=== PATIENT | female | born 1990 | race Caucasian/White ===

== ENCOUNTER 2018-01-20 05:06 | Day surgery (SDC) | payer BC ==
[2018-01-20 05:29] LABS: Urine Blood NEGATIVE (NEG); Urine Glucose NEGATIVE (NEG); Urine Protein TRACE (NEG); Urine Specific Gravity 1.015 (1.005-1.030); Urine pH 8.5 (5.0-7.0)
[2018-01-20] MEDS ORDERED: FENTANYL CITR 100 MCG/2 ML ONE ×2 (05:32→09:05)
[2018-01-20] MEDS ORDERED: NA CHLORIDE 0.9% 1,000 ML ONE (05:32)
[2018-01-20] MEDS ORDERED: ONDANSETRON 4 MG/2 ML VIAL ONE ×2 (05:32→08:41)
[2018-01-20] MEDS ORDERED: KETOROLAC 30 MG/ML INJ ONE ×2 (05:43→09:06)
[2018-01-20 05:54] LABS: Urine Bacteria 20-50 /HPF (<20); Urine Culture Reflex Order REFLEXED; Urine RBC NONE SEEN /HPF (NONE SEEN)
[2018-01-20 06:01] LABS: Absolute Lymphocytes (CBC) 2.1 K/uL (0.7-4.9); Absolute Monocytes 0.9 K/uL (0.1-1.3); Absolute Neutrophil 13.1 K/uL (1.8-8.0); Basophils % 0.4 % (0-1.3); Eosinophils % 0.3 % (0-4.4); Hematocrit 41.9 % (36.0-45.0); Lymphocytes % 13.1 % (15.3-44.8); MCV 79.6 fL (80-100); MPV 9.8 fL (7.6-11.3); Monocytes % 5.4 % (3.3-12.3); RBC Red Blood Cell Count 5.26 M/uL (3.86-4.86)
[2018-01-20 06:05] LABS: Albumin 4.5 g/dL (3.4-5.0); Bilirubin Direct 0.1 mg/dL (0-0.2); Bilirubin Total 0.6 mg/dL (0.2-1.0); Potassium 3.6 mmol/L (3.5-5.1); Protein, Total 8.2 g/dL (6.4-8.2)
--- NOTE | 2018-01-20 07:27 | EDPHYS ---
Physician Documentation [facility] Name: Beatris Abbott Age: 27 yrs Sex: Female : 1990 Arrival Date: 01/20/2018 Time: 05:07 Bed 6 Private MD: ED Physician Tomer Florez HPI: 01/20 06:02 This 27 yrs old Female presents to ER via Ambulatory with complaints of wa Abdominal Pain. 06:02 The patient presents with abdominal pain right lower quadrant, R pelvis. Onset: The wa symptoms/episode began/occurred 30 hour(s) ago. The symptoms do not radiate. Associated signs and symptoms: Pertinent positives: nausea, vomiting, Pertinent negatives: diarrhea, dysuria, fever. The symptoms are described as achy, sharp. Modifying factors: The symptoms are alleviated by nothing, the symptoms are aggravated by nothing. Severity of pain: At its worst the pain was severe in the emergency department the pain is actually worse markedly. The patient has not experienced similar symptoms in the past. The patient has not recently seen a physician. recently finished menses. 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 - Social history:: Smoking status: Patient/guardian denies using tobacco. - Ebola Screening: : No symptoms or risks identified at this time. - Family history:: not pertinent. - Hospitalizations: : No recent hospitalization is reported. ROS: 06:04 Constitutional: Negative for fever, chills, and weight loss, Eyes: Negative for injury, wa pain, redness, and discharge, ENT: Negative for injury, pain, and discharge, Neck: Negative for injury, pain, and swelling, Cardiovascular: Negative for chest pain, palpitations, and edema, Respiratory: Negative for shortness of breath, cough, wheezing, and pleuritic chest pain, Back: Negative for injury and pain, MS/Extremity: Negative for injury and deformity, Skin: Negative for injury, rash, and discoloration, Neuro: Negative for headache, weakness, numbness, tingling, and seizure, Psych: Negative for depression, anxiety, suicide ideation, homicidal ideation, and hallucinations. 06:04 Abdomen/GI: Positive for abdominal pain, vomiting, of the right lower quadrant, Negative for diarrhea. 06:04 : Positive for pelvic pain, of the Right side, Negative for urinary frequency, hematuria, burning with urination, difficulty urinating, vaginal bleeding, vaginal discharge. Exam: 06:05 Constitutional: This is a well developed, well nourished patient who is awake, alert, wa and in no acute distress. Head/Face: Normocephalic, atraumatic. Eyes: Pupils equal round and reactive to light, extra-ocular motions intact. Lids and lashes normal. Conjunctiva and sclera are non-icteric and not injected. Cornea within normal limits. Periorbital areas with no swelling, redness, or edema. ENT: Nares patent. No nasal discharge, no septal abnormalities noted. Tympanic membranes are normal and external auditory canals are clear. Oropharynx with no redness, swelling, or masses, exudates, or evidence of obstruction, uvula midline. Mucous membranes moist. 06:05 Neck: Trachea midline, no thyromegaly or masses palpated, and no cervical lymphadenopathy. Supple, full range of motion without nuchal rigidity, or vertebral point tenderness. No Meningismus. Chest/axilla: Normal chest wall appearance and motion. Nontender with no deformity. No lesions are appreciated. Cardiovascular: Regular rate and rhythm with a normal S1 and S2. No gallops, murmurs, or rubs. Normal PMI, no JVD. No pulse deficits. Respiratory: Lungs have equal breath sounds bilaterally, clear to auscultation and percussion. No rales, rhonchi or wheezes noted. No increased work of breathing, no retractions or nasal flaring. Back: No spinal tenderness. No costovertebral tenderness. Full range of motion. Skin: Warm, dry with normal turgor. Normal color with no rashes, no lesions, and no evidence of cellulitis. MS/ Extremity: Pulses equal, no cyanosis. Neurovascular intact. Full, normal range of motion. Neuro: Awake and alert, GCS 15, oriented to person, place, time, and situation. Cranial nerves II-XII grossly intact. Motor strength 5/5 in all extremities. Sensory grossly intact. Cerebellar exam normal. Normal gait. Psych: Awake, alert, with orientation to person, place and time. Behavior, mood, and affect are within normal limits. 06:05 Constitutional: The patient appears alert, in obvious distress, moderately distressed, due to pain. 06:05 Abdomen/GI: Inspection: abdomen appears normal, Bowel sounds: normal, in all quadrants, Palpation: soft, moderate abdominal tenderness, in the right lower quadrant. Vital Signs: 05:18 BP 122 / 98; Pulse 81; Resp 20; Temp 97.7(O); Pulse Ox 100% ; Weight 79.38 kg; Height 5 tl2 ft. 6 in. (167.64 cm); Pain 10/10; 05:54 BP 112 / 71; Pulse 57; Resp 18; Pulse Ox 94% on R/A; Pain 1/10; tl2 06:45 BP 112 / 61; Pulse 55; Resp 14; Pulse Ox 98% ; bp 07:35 BP 94 / 52; Pulse 52; Resp 17; Pulse Ox 100% on R/A; tw2 05:18 Body Mass Index 28.25 (79.38 kg, 167.64 cm) tl2 MDM: 05:15 Patient medically screened. al 06:06 Differential diagnosis: severe abd/pelvic pain R side. r/o ovarian ruptured cyst, wa torsion, TOA, ureteral stone, appy. treat pain. obtain studies to reassess. Data reviewed: vital signs, nurses notes. 06:38 Test interpretation: by ED physician or midlevel provider: labs noted for leukocytosis. wa UA note for ketonuria. 07:22 Test interpretation: by ED physician or midlevel provider: CT abd/pelvis: Acute wa appendicitis. . Response to treatment: the patient's symptoms have markedly improved after treatment. Physician consultation: Steven Bacon MD was contacted at 07:25. Admission orders: after a detailed discussion of the patient's condition and case, the admit orders are written by me. 01/20 05:26 Order name: Creatinine for Radiology; Complete Time: 06:36 01/20 05:26 Order name: Basic Metabolic Panel; Complete Time: 06:35 01/20 05:26 Order name: CBC with Diff; Complete Time: 06:35 01/20 05:26 Order name: Hepatic Function; Complete Time: 06:36 01/20 05:26 Order name: Lipase; Complete Time: 06:36 21 05:26 Order name: Urine Microscopic Only; Complete Time: 06:36 al 01/20 05:27 Order name: CT Abd/Pelvis - W/Contrast 01/20 05:27 Order name: Urine Dipstick--Ancillary (enter results); Complete Time: 06:36 [facility] 01/20 05:27 Order name: Urine --Ancillary (enter results); Complete Time: 06:34 [facility] 01/20 05:54 Order name: Urine Culture EDMS 01/20 07:31 Order name: Basic Metabolic Panel EDMS 01/20 07:31 Order name: Basic Metabolic Panel EDMS 01/20 07:31 Order name: CBC with Automated Diff EDMS 01/20 07:31 Order name: CBC with Automated Diff EDMS 01/20 05:26 Order name: Urine Test (obtain specimen); Complete Time: 05:28 01/20 05:26 Order name: IV Saline Lock; Complete Time: 05:28 01/20 05:26 Order name: Labs collected and sent; Complete Time: 05:01/20 05:26 Order name: Urine Dipstick-Ancillary (obtain specimen); Complete Time: 05:01/20 06:19 Order name: Transvaginal Study Probe EDMS Administered Medications: 05:36 Drug: fentaNYL (PF) 100 mcg Route: IVP; Site: right antecubital; tl2 05:41 Follow up: Response: Pain is decreased bp 05:37 Drug: Zofran 4 mg Route: IVP; Site: right antecubital; tl2 05:41 Follow up: Response: Nausea is decreased bp 05:37 Drug: NS 0.9% 1000 ml Route: IV; Rate: 1 bolus; Site: right antecubital; tl2 07:10 Follow up: Response: No adverse reaction; IV Status: Completed infusion; IV Intake: tw2 1000ml 05:41 Drug: TORadol 30 mg Route: IVP; Site: right antecubital; bp 05:42 Follow up: Response: Pain is decreased bp 07:33 Drug: Zosyn 3.375 grams Route: IVPB; Infused Over: 60 mins; Site: right antecubital; tw2 08:33 Follow up: Response: No adverse reaction; IV Status: Completed infusion tw2 Disposition: 01/20/18 07:26 Hospitalization ordered by Steven Bacon for Inpatient Admission. Preliminary diagnosis is Acute appendicitis. - Bed requested for Telemetry/MedSurg (observation). - Status is Inpatient Admission. tw2 - Condition is Stable. - Problem is new. - Symptoms have improved. UTI on Admission? No Signatures: Dispatcher [employer] EDOR Juju Claudio RN RN tw2 Anuja Chicas RN RN tl2 Tomer Florez MD MD wa Peltier, Brian RN RN bp Corrections: (The following items were deleted from the chart) 06:19 05:28 Pelvis Complete+US.RAD.BRZ ordered. EDOR EDOR 09:06 07:26 Hospitalization Ordered by Steven Bacon MD for Inpatient Admission. Preliminary tw2 diagnosis is Acute appendicitis. Bed requested for Telemetry/MedSurg (observation). Status is Inpatient Admission. Condition is Stable. Problem is new. Symptoms have improved. UTI on Admission? No. haresh
--- NOTE | 2018-01-20 07:27 | ER ---
Nurse's Notes [facility] Name: Beatris Abbott Age: 27 yrs Sex: Female : 1990 Arrival Date: 01/20/2018 Time: 05:07 Bed 6 Private MD: Diagnosis: Acute appendicitis Presentation: 01/20 05:16 Presenting complaint: Patient states: RLQ abdominal pain since 1:00 PM yesterday. tl2 Constant pain, reports nausea and vomiting x 3. Denies diarrhea. Transition of care: patient was not received from another setting of care. Onset of symptoms was January 19, 2018 at 13:00. Risk Assessment: Do you want to hurt yourself or someone else? Patient reports no desire to harm self or others. Initial Sepsis Screen: Does the patient meet any 2 criteria? No. Patient's initial sepsis screen is negative. Does the patient have a suspected source of infection? No. Patient's initial sepsis screen is negative. Care prior to arrival: None. 05:16 Method Of Arrival: Ambulatory tl2 05:16 Acuity: [place] 3 tl2 Triage Assessment: 05:18 General: Appears in no apparent distress. uncomfortable, Behavior is calm, cooperative, tl2 appropriate for age. Pain: Complains of pain in right lower quadrant Pain does not radiate. Pain currently is 10 out of 10 on a pain scale. Quality of pain is described as sharp, Pain began 1 day ago. Noted to be grimacing, guarding. Neuro: Level of Consciousness is awake, alert, obeys commands, Oriented to person, place, time, situation. Cardiovascular: Denies chest pain. Respiratory: Airway is patent Respiratory effort is even, unlabored, Respiratory pattern is regular, symmetrical. GI: Abdomen is non-distended, Abd is soft Abdomen is tender to palpation in right lower quadrant Reports lower abdominal pain, nausea, vomiting, Patient currently denies diarrhea. : No signs and/or symptoms were reported regarding the genitourinary system. Derm: Skin is pink, warm \T\ dry. 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 - Social history:: Smoking status: Patient/guardian denies using tobacco. - Ebola Screening: : No symptoms or risks identified at this time. - Family history:: not pertinent. - Hospitalizations: : No recent hospitalization is reported. Screenin:20 Abuse screen: Denies threats or abuse. Nutritional screening: No deficits noted. tl2 Tuberculosis screening: No symptoms or risk factors identified. Fall Risk None identified. Assessment: 05:20 General: Appears distressed, uncomfortable, slender, Behavior is cooperative, bp appropriate for age, agitated. Pain: Complains of pain in right lower quadrant Pain currently is 10 out of 10 on a pain scale. Neuro: Level of Consciousness is awake, alert, obeys commands, Oriented to person, place, time, situation, Appropriate for age. Cardiovascular: No deficits noted. Respiratory: Airway is patent Respiratory effort is even, unlabored, Respiratory pattern is regular, symmetrical. GI: Bowel sounds present X 4 quads. : No signs and/or symptoms were reported regarding the genitourinary system. EENT: No deficits noted. Derm: No deficits noted. Musculoskeletal: No deficits noted. 05:54 Reassessment: Patient appears in no apparent distress at this time. Patient and/or tl2 family updated on plan of care and expected duration. Pain level reassessed. Patient is alert, oriented x 3, equal unlabored respirations, skin warm/dry/pink. Patient states feeling better. 05:55 General: US will arrive in approx 10 minutes. tl2 06:04 Reassessment: U/S AT B/S. bp 06:21 Reassessment: PT TO CT WITH MAIL READER. bp 06:50 Reassessment: ALL CURRENT ORDERS COMPLETED, PT RETURNED TO ROOM. RAD RESULTS PENDING. bp 07:35 Reassessment: Patient appears in no apparent distress at this time. Patient and/or tw2 family updated on plan of care and expected duration. Pain level reassessed. Patient is alert, oriented x 3, equal unlabored respirations, skin warm/dry/pink. Vital Signs: 05:18 BP 122 / 98; Pulse 81; Resp 20; Temp 97.7(O); Pulse Ox 100% ; Weight 79.38 kg; Height 5 tl2 ft. 6 in. (167.64 cm); Pain 10/10; 05:54 BP 112 / 71; Pulse 57; Resp 18; Pulse Ox 94% on R/A; Pain 1/10; tl2 06:45 BP 112 / 61; Pulse 55; Resp 14; Pulse Ox 98% ; bp 07:35 BP 94 / 52; Pulse 52; Resp 17; Pulse Ox 100% on R/A; tw2 05:18 Body Mass Index 28.25 (79.38 kg, 167.64 cm) tl2 ED Course: 05:07 Patient arrived in ED. ds1 05:15 Tomer Florez MD is Attending Physician. wa 05:17 Triage completed. tl2 05:18 Arm band placed on right wrist. tl2 05:20 Patient has correct armband on for positive identification. Placed in gown. Bed in low tl2 position. Call light in reach. Side rails up X 1. Adult w/ patient. 05:30 Mane Millan, RN is Primary Nurse. bp 05:30 Inserted saline lock: 20 gauge in right antecubital area, using aseptic technique. bp Blood collected. 05:46 Radiology exam delayed due to Dr. Florez has asked to have an US completed prior to kw1 having her CT done. 06:17 Ultrasound completed. Patient tolerated well. aa4 06:19 Transvaginal Study Probe In Process Unspecified. EDMS 06:[address] via wheelchair. kw1 06:34 CT completed. Patient tolerated procedure well. Patient moved back from CT. kw1 06:36 CT Abd/Pelvis - W/Contrast In Process Unspecified. EDMS 07:26 Steven Bacon MD is Hospitalizing Provider. wa 07:36 Primary Nurse role handed off by Mane Millan, JOCELYN tw2 07:36 Juju Claudio, JOCELYN is Primary Nurse. tw2 09:06 No provider procedures requiring assistance completed. Patient admitted, IV remains in tw2 place. Administered Medications: 05:36 Drug: fentaNYL (PF) 100 mcg Route: IVP; Site: right antecubital; tl2 05:41 Follow up: Response: Pain is decreased bp 05:37 Drug: Zofran 4 mg Route: IVP; Site: right antecubital; tl2 05:41 Follow up: Response: Nausea is decreased bp 05:37 Drug: NS 0.9% 1000 ml Route: IV; Rate: 1 bolus; Site: right antecubital; tl2 07:10 Follow up: Response: No adverse reaction; IV Status: Completed infusion; IV Intake: tw2 1000ml 05:41 Drug: TORadol 30 mg Route: IVP; Site: right antecubital; bp 05:42 Follow up: Response: Pain is decreased bp 07:33 Drug: Zosyn 3.375 grams Route: IVPB; Infused Over: 60 mins; Site: right antecubital; tw2 08:33 Follow up: Response: No adverse reaction; IV Status: Completed infusion tw2 Intake: 07:10 IV: 1000ml; Total: 1000ml. tw2 Outcome: 07:26 Decision to Hospitalize by Provider. va 09:06 Admitted to OR accompanied by nurse, with chart. tw2 09:06 Condition: stable 09:06 Instructed on the need for admit. 09:06 Patient left the ED. tw2 Signatures: Dispatcher [employer] EDME HoffmanLorie ge ds1 Sandra Ahn aa4 Juju Claudio RN RN tw2 Anuja Chicas RN RN tl2 Tomer Florez MD MD va Mane Millan RN RN bp Mary Dao kw1
[2018-01-20] MEDS ORDERED: MORPHINE 4 MG/ML SYR IV PRN (07:29)
[2018-01-20] MEDS ORDERED: ACETAMINOPHEN 500 MG TAB PO PRN (07:29)
[2018-01-20] MEDS ORDERED: ONDANSETRON 4 MG/2 ML VIAL IV PRN (07:29)
[2018-01-20] MEDS ORDERED: PIPER/TAZO/NS 3.375gm 3.375 GM/100 ML BAG ONE (07:30)
[2018-01-20] MEDS ORDERED: D5.45NS W/KCL 20MEQ 1,000 ML IV SCH (08:00)
[2018-01-20] MEDS ORDERED: MORPHINE 4 MG/ML SYR ONE ×2 (08:41→09:05)
[2018-01-20] MEDS ORDERED: LIDOCAINE 1% W/EPI 1:100,000 MDV 50 ML VIAL ONE (08:57)
--- NOTE | 2018-01-20 09:01 | RAD REPORT ---
EXAM DESCRIPTION: US - Transvaginal Study Probe - 01/20/2018 6:21 am CLINICAL HISTORY: Right pelvic pain COMPARISON: none FINDINGS: The uterus measures 7 x 4 x 5cm. A fibroid is not seen. Fluid within the endometrium is se en. The endometrial stripe measures 8 millimeters. The ovaries are normal in size and echotexture. Bilateral ovarian blood flow is noted. A small amount of free fluid is present IMPRESSION: Small amount of free fluid
--- NOTE | 2018-01-20 09:04 | RAD REPORT ---
EXAM DESCRIPTION: CT - Abdomen Pelvis W Contrast - 01/20/2018 8:54 am CLINICAL HISTORY: Abdominal pain right lower quadrant pain since 1 yesterday with vomiting COMPARISON: none. TECHNIQUE: Computed axial tomography of the abdomen pelvis was obtained. 100 cc Isovue-300 was admin istered intravenously. Oral contrast was not requested which limits evaluation of bowel. A preliminary report was generated by [employer] and reviewed prior to this dictation All CT scans are performed using dose optimization technique as appropriate and may include automated exposure control or mA/KV adjustment according to patient size. FINDINGS: The liver, spleen, pancreas, adrenal and kidneys appear unremarkable. The appendix is dilated. A small amount of extraluminal air is seen. Couple of appendicolith are note d. The appendix extends superiorly medially from the cecum .A small amount of free fluid is present i n the pelvis and right lower quadrant. IMPRESSION: Perforated appendicitis.
[2018-01-20] MEDS ORDERED: GLYCOPYRROLATE 0.2 MG/ML SYR ONE (09:05)
[2018-01-20] MEDS ORDERED: PROPOFOL 200 MG/20 ML VIAL IV ONE (09:05)
[2018-01-20] MEDS ORDERED: MIDAZOLAM HCL 2 MG/2 ML INJ ONE (09:05)
[2018-01-20] MEDS ORDERED: ONDANSETRON 4 MG (ODT) TAB ONE (09:05)
[2018-01-20] MEDS ORDERED: ROCURONIUM 50 MG/5 ML VIAL IV ONE (09:06)
[2018-01-20] MEDS ORDERED: LIDOCAINE 2% MPF 5 ML VIAL ONE (09:06)
[2018-01-20] MEDS ORDERED: ONDANSETRON HCL 40 MG/20 ML VIAL ONE (09:06)
[2018-01-20] MEDS ORDERED: NEOSTIGMINE 1 MG/ML -5 ML SYRINGE ONE (09:06)
[2018-01-20] MEDS ORDERED: Ringers Lactate 1,000 ML IV ONE ×2 (09:19→10:26)
[2018-01-20] MEDS: BUPIVACA 0.25%/EPI 0.0005%/PF 30 ML VIAL ONE ×2 (09:51→09:57)
--- NOTE | 2018-01-20 10:23 | P.OP ---
Information Assoc: Ko Lassiter Preoperative diagnosis: Acute Non-Perforated Appendicitis Postoperative diagnosis: Acute Non-Perforated Appendicitis Primary procedure: Laparoscopic Appendectomy Anesthesia: GETA + Local Estimated blood loss: <5cc Specimen: Vermiform Appendix Findings: Acute Non-Perforated Appendicitis Complications: None Transferred to: Recovery Room Condition: Good
[2018-01-20] MEDS ORDERED: HYDROCODONE/APAP 5/325 MG TAB ONE (11:07)
[2018-01-20] MEDS ORDERED: PROMETHAZINE 25 MG/ML VIAL ONE (11:33)
--- OUTSIDE RECORDS SUMMARY | 2018-01-20 12:16 | XMS REPORT | Summary of Care ---
:1990 Author Organization [facility] Address [address] [place], [place] [address]- Encounter [facility] Encntr_alias([facility]) [id number] Date(s): 03/21/17 - 03/21/17 [facility] [address] [place] [address]- Discharge Disposition: Home or Self Care Attending Physician: Kobi Mcdonald MD Admitting Physician: KOBI MCDONALD Referring Physician: Kobi Mcdonald MD Vital Signs No data available for this section Problem List No data available for this section Allergies, Adverse Reactions, Alerts No data available for this section Medications No data available for this section Results No data available for this section Immunizations No data available for this section Procedures No data available for this section Social History No data available for this section Assessment and Plan No data available for this section
--- OUTSIDE RECORDS SUMMARY | 2018-01-20 12:16 | XMS REPORT | Continuity of Care Document ---
:1990 Author Organization Interface Problems Problem Status Onset Classification Date Comments Source Date Reported ANATOMY Active [facility] U/S - GDM, [address] UNCONTROLLED Medications Medication Details Route Status Patient Ordering Order Source Instructions Provider Date Allergies, Adverse Reactions, Alerts Substance Category Reaction Severity Reaction Status Date Comments Source type Reported Immunizations Immunization Date Given Site Status Last Updated Comments Source Results Order Results Value Reference Date Interpretation Comments Source Name Range Vital Signs Vital Sign Value Date Comments Source Encounters Location Location Encounter Encounter Reason Attending ADM DC Status Source Details Type Number For Provider Date Date Visit [facility] [id number] SARAH 03/21 03/22 JOCELINE MCDONALD /2016 [place] Procedures Procedure Code Date Perfomer Comments Source
--- OUTSIDE RECORDS SUMMARY | 2018-01-20 12:16 | XMS REPORT | Clinical Summary ---
:1990 Author Organization [facility] Address [address] [place] [address] Phone Care Team Providers Name Role Phone Unavailable Primary Care Provider Unavailable Allergies No Known Allergies Current Medications Prescription Sig. Disp. Refills Start Date End Date Status scopolamine Place 1 patch 12 patch 1 10/11/2016 Discontinued (TRANSDERM-SCOP) (1.5 mg total) 7 1.5 mg (1 mg over onto the skin 3 days) patch every third day. progesterone Take 100 mg by Discontinued (PROMETRIUM) 100 mouth daily. 7 MG capsule PNV NO.95/FERROUS Take by mouth Discontinued FUM/FOLIC AC daily. 7 ( ORAL) metFORMIN Take 1 tablet 60 tablet 4 02/10/2017 Discontinued (GLUCOPHAGE XR) (500 mg total) by 7 500 MG 24 hr mouth 2 (two) tablet times daily for 30 days. metFORMIN Take 2 tablets 120 tablet 1 02/21/2017 Discontinued (GLUCOPHAGE XR) (1,000 mg total) 7 500 MG 24 hr by mouth 2 (two) tablet times daily for 30 days. metFORMIN Take 2 tablets 120 tablet 2 03/17/2017 Discontinued (GLUCOPHAGE XR) (1,000 mg total) 7 500 MG 24 hr by mouth 2 (two) tablet times daily for 30 days. acetaminophen-cod Take 1 tablet by 30 tablet 0 03/24/2017 eine (TYLENOL #3) mouth every 4 7 300-30 mg per (four) hours as tablet needed for up to 10 days. Max Daily Amount: 6 tablets docusate sodium Take 1 capsule 10 capsule 0 03/24/2017 (COLACE) 100 MG (100 mg total) by 7 capsule mouth 2 (two) times daily as needed for Constipation for up to 10 days. ibuprofen Take 1 tablet 40 tablet 0 03/24/2017 (ADVIL,MOTRIN) (800 mg total) by 7 800 MG tablet mouth every 6 (six) hours as needed for up to 10 days. Active Problems Problem Noted Date 03/21/2017 care in first trimester 09/13/2016 Amenorrhea 08/18/2016 Encounters Date Type Specialty Care Team Description 05/02/2017 Obstetrics and MORGAN Prasad (spontaneous Gynecology Kobi Giron, vaginal delivery) (Primary Dx) 04/05/2017 Obstetrics MORGAN Patel (spontaneous Gynecology Kobi Giron, vaginal delivery) (Primary Dx) 03/27/2017 Telephone Obstetrics santiago Prasad, Edema Gynecology Kobi Giron MD 03/22/2017 Anesthesia Event Obstetrics Emily Clay, DO 03/22/2017 Anesthesia Event Obstetrics Joel Anderson, LINDSEY 03/21/2017 - Hospital Encounter Obstetrics MORGAN Prasad (spontaneous 03/24/2017 Kobi Giron, vaginal delivery) (Primary Dx);GDM, class A2 ([facility]) 03/17/2017 Routine Obstetrics and Osmar, GA: 36w4d Gynecology Kobi Giron MD 03/15/2017 Orders Only Obstetrics and Osmar, Patricia Giron MD 03/14/2017 Telephone Obstetrics santiago Prasad, Diabetes Gynecology Kobi Giron MD 03/10/2017 Routine Obstetrics and Osmar, GA: 35w4d Patricia Giron MD 03/09/2017 Orders Only Obstetrics and Osmar, Gynecology Kobi Giron MD 02/21/2017 Routine Obstetrics and Osmar, GA: 33w1d Patricia Giron MD 02/16/2017 Routine Obstetrics and Osmar, GA: 32w3d Gynecology Kobi Giron MD 02/10/2017 Routine Obstetrics and Osmar, GA: 31w4d Gynecology Kobi Giron MD 01/31/2017 Telephone Obstetrics santiago Prasad, Incoming Gynecology Matias Beckwith MD 01/27/2017 Routine Obstetrics and Osmar, GA: 29w4d Gynecology Kobi Giron MD after 01/19/2017 Immunizations Name Dates Previously Given Next Due Influenza Three-TIV PF 5+ YR 08/18/2016 Tdap 01/27/2017 Family History Medical History Relation Name Comments Hypertension Maternal Aunt Hypertension Maternal Grandfather Cancer Maternal Grandmother Diabetes Maternal Grandmother Relation Name Status Comments Maternal Aunt Maternal Grandfather Maternal Grandmother Social History Tobacco Use Types Packs/Day Years Used Date Never Smoker Smokeless Tobacco: Never Used Alcohol Use Drinks/Week oz/Week Comments No Sex Assigned at Date Recorded Not on file Last Filed Vital Signs Vital Sign Reading Time Taken Blood Pressure 99/66 05/02/2017 10:33 AM CDT Pulse 90 05/02/2017 10:33 AM CDT Temperature 36.6 C (97.8 F) 05/02/2017 10:33 AM CDT Respiratory Rate 20 03/24/2017 7:34 AM CDT Oxygen Saturation 98% 05/02/2017 10:33 AM CDT Inhaled Oxygen Concentration - - Weight 82.2 kg (181 lb 3.2 oz) 05/02/2017 10:33 AM CDT Height 167.6 cm (5' 6") 05/02/2017 10:33 AM CDT Body Mass Index 29.25 05/02/2017 10:33 AM CDT Plan of Treatment Date Type Specialty Care Team Description 05/03/2018 Office Visit Obstetrics and Gynecology OsmarKobi MD [address] [address] [phone] Health Maintenance Due Date Last Done Comments INFLUENZA VACCINE 04/02/2018 08/18/2016 Results TRANSFUSION SERVICE REPORT - SCAN (03/23/2017 5:30 PM)Only the most recent of2 resultswithin the time period is included.Manual Differential (03/23/2017 4:40 AM)Only the most recent of2 resultswithin the time period is included. Component Value Ref Range % Neutros (manual) 89 % % Lymphs (manual) 7 % % Monos (manual) 4 % # Neutros (manual) 16.91 (H) 1.80 - 8.00 K/L # Lymphs (manual) 1.33 (L) 1.48 - 4.50 K/L # Monos (manual) 0.76 0.00 - 1.30 K/L Total Counted 100 WBC Morphology Normal Giant Platelet Present Anisocytosis 1+ few Hypochromia 2+ moderate Microcytes 1+ few Polychromasia 1+ few Stomatocytes 1+ few Specimen Performing Laboratory Blood [facility] [address] [place] [id number] CBC with platelet count + automated diff (03/23/2017 4:40 AM)Only the most recent of2 resultswithin the time period is included. Component Value Ref Range WBC 19.0 (H) 4.0 - 10.0 K/L RBC 3.98 (L) 4.00 - 5.00 M/L Hemoglobin 9.6 (L) 12.0 - 15.0 GM/DL Hematocrit 30.2 (L) 36.0 - 45.0 % MCV 75.9 (L) 82.0 - 99.0 fL MCH 24.1 (L) 27.0 - 33.0 pg MCHC 31.8 (L) 32.0 - 36.0 GM/DL RDW 16.1 (H) 10.3 - 14.2 % Platelets 122 (L) 150 - 430 K/CU MM MPV 11.9 (H) 6.5 - 10.5 fL nRBC 0 0 - 0 /100 WBC % Neutros 86 % % Lymphs 8 % % Monos 5 % % Eos 0 % % Baso 0 % # Neutros 16.40 (H) 1.80 - 8.00 K/L # Lymphs 1.60 1.48 - 4.50 K/L # Monos 1.00 0.00 - 1.30 K/L # Eos 0.00 0.00 - 0.50 K/L # Baso 0.00 0.00 - 0.20 K/L Specimen Performing Laboratory Blood [facility] [address] [place] [address] CBC with platelet count + automated diff (03/23/2017 4:40 AM)Only the most recent of3 resultswithin the time period is included. Specimen Performing Laboratory Blood Narrative The following orders were created for panel order CBC with platelet count + automated diff. Procedure Abnormality Status --------- ------ CBC with platelet count ...[[id number]]AbnormalFinal result Manual Differential[[id number]]Abnormal Final result Please view results for these tests on the individual orders. Blood gas, cord venous (03/22/2017 10:49 PM) Component Value Ref Range pH, Cord Venous 7.24 (L) 7.32 - 7.42 pCO2, Cord Venous 47 41 - 51 mmHg pO2, Cord Venous 21 (L) 25 - 40 mmHg HCO3, Cord Venous 20 (L) 21 - 29 mmol/L Base Excess, Cord Venous -8.0 (L) -2.0 - 3.0 mmol/L Patient Temperature 37.0 C Specimen Performing Laboratory Blood [facility] [address] [place] [address] Blood gas, cord arterial (03/22/2017 10:49 PM) Component Value Ref Range pH, Cord Arterial 7.13 (L) 7.15 - 7.38 pCO2, Cord Arterial 54 32 - 68 mmHg pO2, Cord Arterial 14 (L) 16 - 20 mmHg HCO3, Cord Arterial 18 15 - 27 mmol/L Base Excess, Cord Arterial -11.9 (L) -8.1 - 0.9 mmol/L Patient Temperature 37.0 C Specimen Performing Laboratory Blood, Arterial [facility] [address] [place] [address] Tissue Exam: Placenta-Gross (03/22/2017 10:27 PM) Component Value Ref Range Case Report Surgical Pathology Report Case: [id number] Authorizing Provider:Kobi Prasad, Collected: 03/22/2017 2227 Ordering Location: [facility] Received: 03/23/[address] [place] [address] Pathologist: Mariel Higgins MD Specimen:Placenta, Maternal DIAGNOSIS PLACENTA, DELIVERY: - THREE-VESSEL UMBILICAL CORD - NO CHORIOAMNIONITIS OR FUNISITIS - MATURE PLACENTAL VILLI - PLACENTAL WEIGHT: 520 g, 75th PERCENTILE FOR GESTATIONAL AGE Signing Pathologist Direct Phone Line: [phone] CPT Code(s) AL/ew 67696 CLINICAL HISTORY 37 week gestation, diabetes SPECIMEN SOURCE Placenta GROSS DESCRIPTION The specimen is received in formalin labeled with the patient's name, medical record number and "placenta". It consists a placenta ( 22 x 23.5 x 1 cm; 520 gm). A segment of cord measures 18.5 cm in lengt h. It has three vessels and regular spiraling. The surface is blue- jackman with a normal arborization pattern. The membranes attach marginally with the site rupture 3 cm from the placental margin. Th e maternal surface is red-brown with well-formed cotyledons. Occasional calcifications are seen. The placental parenchyma is red-purple and spongy. No infarcts, nodules, or masses are appreciated. Repre sentative sections are submitted in cassettes A1 through A4. Section code: A1, maternal side of cord and membrane roll; A2, side of cord and membrane roll; A3-A4, placental parenchyma. AL/ew MICROSCOPIC DESCRIPTION Performed Gross assessment was performed at [facility], Department of Pathology, [address] [place] [address], Technical component was performed at [facility], Department of Pathology, [address] [place] [address], Professional component was performed [facility], at Department of Pathology, [address] [place] [address], Specimen Performing Laboratory Tissue - Placenta, [place] [address] ANESTHESIA EPIDURAL BLOCK (03/22/2017 7:34 AM) Narrative Emily Clay DO 03/22/20177:34 AM Epidural Block Patient location during procedure: OB Start time: 03/22/2017 7:20 AM End time: 03/22/2017 7:33 AM Reason for block: procedure for pain, at surgeon's request and post-op pain management Staffing Anesthesiologist: EMILY CLAY Performed by: anesthesiologist Preanesthetic Checklist Completed: patient identified, site marked, surgical consent, pre-op evaluation, timeout performed, IV checked, risks and benefits discussed and monitors and equipment checked Prep Prep: Betadine Protective Measures: sterile gloves, surgical mask and surgical hat Epidural Patient position: sitting Patient monitoring: heart rate and continuous pulse ox Approach: midline Location: L5 Injection technique: JESUS air Needle Needle type: Tuohy Needle gauge: 17 G Needle length: 9 cm Needle insertion depth: 5 cm Catheter type: side hole Catheter size: 19 G Catheter insertion depth: 4 cm Test dose: negative Assessment Sensory level: T10 Events: No evidence of intravascular or intrathecal injection Additional Notes Patient tolerated procedure well.Vital signs stable.No complications. Procedure Note Emily Clayu, DO - 03/22/2017 7:33 AM CDT Epidural Block Patient location during procedure: OB Start time: 03/22/2017 7:20 AM End time: 03/22/2017 7:33 AM Reason for block: procedure for pain, at surgeon's request and post-op pain management Staffing Anesthesiologist: EMILY CLAYU Performed by: anesthesiologist Preanesthetic Checklist Completed: patient identified, site marked, surgical consent, pre-op evaluation , timeout performed, IV checked, risks and benefits discussed and monitors and equipment checked Prep Prep: Betadine Protective Measures: sterile gloves, surgical mask and surgical hat Epidural Patient position: sitting Patient monitoring: heart rate and continuous pulse ox Approach: midline Location: L5 Injection technique: JESUS air Needle Needle type: Tuohy Needle gauge: 17 G Needle length: 9 cm Needle insertion depth: 5 cm Catheter type: side hole Catheter size: 19 G Catheter insertion depth: 4 cm Test dose: negative Assessment Sensory level: T10 Events: No evidence of intravascular or intrathecal injection Additional Notes Patient tolerated procedure well. Vital signs stable. No complications. POC-Glucose meter (03/22/2017 6:49 AM)Only the most recent of2 resultswithin the time period is included. Component Value Ref Range POC-Glucose Meter 74Comment: TESTED AT [facility] [address] 70 - 110 mg/ dL [facility] [address] Specimen Performing Laboratory Blood [address] [address] Rubella antibody, IgG (03/21/2017 10:15 PM) Component Value Ref Range Rubella Ab, Igg Nikolas 2.27 INDEX Comment: REFERENCE RANGE: <0.90 INDEXINTERPRETATION <0.90NOT CONSISTENT WITH IMMUNITY 0.90-0.99EQUIVOCAL > or=1.00 CONSISTENT WITH IMMUNITY The presence of Rubella IgG antibody suggests immunization or past or current infection with Rubella virus. Specimen Performing Laboratory Blood [facility] [address] [place] [address] Narrative Performing Lab *[facility] [address] [place] [address] Sukhdev Will MD Hepatitis B surface antigen (03/21/2017 10:15 PM) Component Value Ref Range hepatitis B Surface Ag Nonreactive Nonreactive Specimen Performing Laboratory Blood [facility] [address] [place] [address] Type and screen (03/21/2017 10:15 PM) Component Value Ref Range Ab Scrn NEGATIVE ABO Grouping O Rh Factor POS Specimen Performing Laboratory Blood [address] [address] Comprehensive metabolic panel (03/21/2017 10:15 PM)Only the most recent of2 resultswithin the time period is included. Component Value Ref Range Protein, Total 6.0 6.0 - 8.5 gm/dL Albumin 3.0 (L) 3.5 - 5.0 g/dL Alkaline Phosphatase 206 (H) 30 - 115 U/L Total Bilirubin 0.2 0.1 - 1.2 mg/dL Sodium 136 135 - 148 meq/L Potassium 3.6 3.6 - 5.5 meq/L Chloride 106 98 - 106 meq/L CO2 18 (L) 20 - 29 meq/L BUN 5 (L) 10 - 26 mg/dL Creatinine 0.70 0.50 - 1.20 mg/dL Glucose 101 70 - 110 mg/dL Calcium 8.9 8.5 - 10.5 mg/dL AST 12 5 - 40 U/L ALT 9 5 - 50 U/L EGFR 103Comment: ESTIMATED GFR IS NOT ACCURATE mL/min/1.73 sq m CREATININE CLEARANCE IN PREDICTING GLOMERULAR FILTRATION RATE. ESTIMATED GFR IS NOT APPLICABLE FOR DIALYSIS PATIENTS. Specimen Performing Laboratory Blood [facility] [address] [place] [address] Biophysical Profile (03/20/2017 2:34 PM)Only the most recent of4 resultswithin the time period is included. Narrative Beatris Abbott 1990 BIOPHYSICAL ULTRASOUND REPORT Date performed: 03/17/17 LMP: 07/04/16 ERIC: 04/10/17 GA: 36w4d Position: cephalic ROBERTA:9.1 cm FHR: 144 bpm breathin tone:2 movement:2 ROBERTA:2 BPP total: 02/07 Additional comments: POCT OB Urine Dipstick (03/17/2017 11:11 AM)Only the most recent of5 resultswithin the time period is included. Component Value Ref Range Color, UA Yellow Light Yellow, Yellow Clarity, UA Clear Clear Glucose Urine, POC Negative Negative Bilirubin Urine, POC Negative Negative Ketones Urine, POC Trace (A) Negative Specific [place] Urine, POC 1.020 SG Ratio 1.005 SG Ratio, 1.010 SG Ratio, 1.015 SG Ratio, 1.020 SG Ratio, 1.025 SG Ratio, 1.030 SG Ratio Blood Urine, POC Negative Negative pH Urine, POC 7.0 pH units 5.0 pH units, 6.0 pH units, 6.5 pH units, 7.0 pH units, 7.5 pH units, 8.0 pH units Protein Urine, POC Negative Negative Urobilinogen Urine, POC 0.2 mg/dL 0.2 mg/dL, 1 mg/dL Leukocyte Esterase Urine, POC Negative Negative Nitrite Urine, POC Negative Negative Follow-up with Provider: Instructions in Comments (03/15/2017)STREP GP B CULT/ DNA PROBE (03/10/2017 4:48 AM) Component Value Ref Range Strep Gp B MACKENZIE Negative Negative Comment: Centers for Disease Control and Prevention (CDC) and [place] [employer] of Obstetricians and Gynecologists (ACOG) guidelines for prevention of group B streptococcal (GBS) disease specify co-collection of a vaginal and rectal swab specimen to maximize sensitivity of GBS detection. Per the CDC and ACOG, swabbing both the lower vagina and rectum substantially increases the yield of detection compared with sampling the vagina alone. Penicillin G, ampicillin, or cefazolin are indicated for intrapartum prophylaxis of GBS colonization. Reflex susceptibility testing should be performed prior to use of clindamycin only on GBS isolates from penicillin-allergic women who are considered a high risk for anaphylaxis. Treatment with vancomycin without additional testing is warranted if resistance to clindamycin is noted. Specimen Performing Laboratory [facility] Narrative Performed at: [id number] [employer] Programmer: Carlton Fortune MD, Phone:[phone] Hemoglobin A1c (02/21/2017 4:04 PM) Component Value Ref Range Hemoglobin A1c 5.8 (H) 4.8 - 5.6 % Comment: Pre-diabetes: 5.7 - 6.4 Diabetes: >6.4 Glycemic control for adults with diabetes: <7.0 Specimen Performing Laboratory Blood [facility] Narrative Performed at:[address] [place], [place] [id number] [employer] Programmer: Carlton Fortune MD, Phone:[phone] Uric acid (02/21/2017 4:03 PM) Component Value Ref Range Uric Acid, Serum 5.8Comment: Therapeutic target for gout 2.5 - 7.1 mg/dL patients: <6.0 Specimen Performing Laboratory Blood [facility] Narrative Performed at:[address] [place], [place] [id number] [employer] Programmer: Carlton Fortune MD, Phone:[phone] Lactate dehydrogenase (02/21/2017 4:03 PM) Component Value Ref Range LDH 184 119 - 226 IU/L Specimen Performing Laboratory Blood [facility] Narrative Performed at:[address] [place], [place] [id number] [employer] Programmer: Carlton Fortune MD, Phone:[phone] after 01/19/2017
--- OUTSIDE RECORDS SUMMARY | 2018-01-20 12:16 | XMS REPORT | Clinical Summary ---
:1990 Author Organization [facility] Address [address] [place] [id number] Care Team Providers Name Role Phone Asked, No Pcp Primary Care Provider Unavailable Allergies Not on File Current Medications Not on file Active Problems Not on file Encounters Date Type Specialty Care Team Description 01/19/2017 Consult Weight Management Kobi Prasad MD Gestational diabetes Mesha Ellison RD mellitus (GDM), antepartum, gestational diabetes method of control unspecified (Primary Dx) after 01/19/2017 Social History Tobacco Use Types Packs/Day Years Used Date Never Assessed Sex Assigned at Date Recorded Not on file Last Filed Vital Signs Vital Sign Reading Time Taken Blood Pressure - - Pulse - - Temperature - - Respiratory Rate - - Oxygen Saturation - - Inhaled Oxygen Concentration - - Weight 91.2 kg (201 lb) 01/19/2017 10:34 AM CDT Height 167.6 cm (5' 6") 01/19/2017 10:34 AM CDT Body Mass Index 32.44 01/19/2017 10:34 AM CDT Plan of Treatment Health Maintenance Due Date Last Done Comments DIABETIC FOOT EXAM 2002 DIABETIC RETINAL EYE EXAM 2002 URINE MICROALBUMIN 2002 CERVICAL CANCER SCREENING 2013 INFLUENZA VACCINE 01/31/2018 Goals Patient Goal Type Goal Recent Progress Patient-Stated? Author General WM Monitoring 01/19/[address] Active Use the plate method for meal planning. General WM Physical Activity 01/19/[address] Active Walk at least 30 minutes per day as tolerated. Results Not on fileafter 01/19/2017 Insurance Payer Benefit Plan / Group Subscriber ID Type Phone Address AETNA AETNA PPO OPEN CHOICE xxxxxxxxxx PPO BCBS BCBS CHOICE PPO/FEDERAL EMPL PPO xxxxxxxxx PPO
--- OUTSIDE RECORDS SUMMARY | 2018-01-20 12:17 | XMS REPORT ---
:1990 [facility] Address [address] [place] [address] Dr. Kay [address] [place] [id number] Care Team Providers Name Role Phone KOBI PRASAD Unavailable Unavailable Problems This patient has no known problems. Allergies, Adverse Reactions, Alerts This patient has no known allergies or adverse reactions. Medications This patient has no known medications. Results Test Description Test Time Test Comments Text Results Atomic Results Result Comments TISSUE EXAM 2017-03-24 10:49:00 Surgical Pathology Report Case: [id number] Authorizing Provider: Kobi Prasad, Collected: 03/22/2017 2227 Ordering Location: [facility] Received: 03/23/[address] [place] [address] Pathologist: Mariel Higgins MD Specimen: Placenta, Maternal PLACENTA, DELIVERY: - THREE-VESSEL UMBILICAL CORD - NO CHORIOAMNIONITIS OR FUNISITIS - MATURE PLACENTAL VILLI - PLACENTAL WEIGHT: 520 g, 75th PERCENTILE FOR GESTATIONAL AGE Signing Pathologist Direct Phone Line: [phone] signed by Mariel Higgins MD on 03/24/2017 at 10:49 AMAL/[id number] week gestation, diabetesPlacenta The specimen is received in formalin labeled with the patient's name, medical record number and "placenta". It consists a placenta (22 x 23.5 x 1 cm; 520 gm). A segment of cord measures 18.5 cm in length. It has three vessels and regular spiraling. The surface is blue-jackman with a normal arborization pattern. The membranes attach marginally with the site rupture 3 cm from the placental margin. The maternal surface is red-brown with well-formed cotyledons. Occasional calcifications are seen. The placental parenchyma is red-purple and spongy. No infarcts, nodules, or masses are appreciated. Second Butler sections are submitted in cassettes A1 through A4.Section code: A1, maternal side of cord and membrane roll; A2, side of cord and membrane roll; A3-A4, placental parenchyma. AL/ewPerformedSt. [facility], Department of Pathology, [address] [place] [address], [facility], Department of Pathology, [address] [place] [address], Sy. [facility], Department of Pathology, [address] [place] [address], CBC W/PLT COUNT & AUTO DIFFERENTIAL 2017-03-23 06:29:00 Test Item Value Reference Range Comments WHITE BLOOD CELL COUNT (BEAKER) (test nkyl=324) 19.0 K/ L 4.0-10.0 RED BLOOD CELL COUNT (BEAKER) (test zivg=447) 3.98 M/ L 4.00-5.00 HEMOGLOBIN (BEAKER) (test fqii=725) 9.6 GM/DL 12.0-15.0 HEMATOCRIT (BEAKER) (test bhcp=807) 30.2 % 36.0-45.0 MEAN CORPUSCULAR VOLUME (BEAKER) (test eaqc=060) 75.9 fL 82.0-99.0 MEAN CORPUSCULAR HEMOGLOBIN (BEAKER) (test pfet=032) 24.1 pg 27.0-33.0 MEAN CORPUSCULAR HEMOGLOBIN CONC (BEAKER) (test rynv=289) 31.8 GM/DL 32.0- 36.0 RED CELL DISTRIBUTION WIDTH (BEAKER) (test zhmp=603) 16.1 % 10.3-14.2 PLATELET COUNT (BEAKER) (test ysal=468) 122 K/CU MM 150-430 MEAN PLATELET VOLUME (BEAKER) (test fdmc=826) 11.9 fL 6.5-10.5 NUCLEATED RED BLOOD CELLS (BEAKER) (test urvu=029) 0 /100 WBC 0-0 NEUTROPHILS RELATIVE PERCENT (BEAKER) (test bjlk=969) 86 % LYMPHOCYTES RELATIVE PERCENT (BEAKER) (test ntnq=919) 8 % MONOCYTES RELATIVE PERCENT (BEAKER) (test tozq=793) 5 % EOSINOPHILS RELATIVE PERCENT (BEAKER) (test jsal=425) 0 % BASOPHILS RELATIVE PERCENT (BEAKER) (test tdwy=442) 0 % NEUTROPHILS ABSOLUTE COUNT (BEAKER) (test itmd=473) 16.40 K/ L 1.80-8.00 LYMPHOCYTES ABSOLUTE COUNT (BEAKER) (test qybl=655) 1.60 K/ L 1.48-4.50 MONOCYTES ABSOLUTE COUNT (BEAKER) (test fynm=561) 1.00 K/ L 0.00-1.30 EOSINOPHILS ABSOLUTE COUNT (BEAKER) (test ztep=993) 0.00 K/ L 0.00-0.50 BASOPHILS ABSOLUTE COUNT (BEAKER) (test dofj=880) 0.00 K/ L 0.00-0.20 (MANUAL DIFFERENTIAL)2017-03-23 06:29:00 Test Item Value Reference Range Comments NEUTROPHILS - REL (DIFF) (BEAKER) (test 89 % pzgc=2045) LYMPHOCYTES - REL (DIFF) (BEAKER) (test 7 % uuqc=3488) MONOCYTES - REL (DIFF) (BEAKER) (test ilrl=9135) 4 % NEUTROPHILS - ABS (DIFF) (BEAKER) (test 16.91 K/ L 1.80-8.00 mavd=0455) LYMPHOCYTES - ABS (DIFF) (BEAKER) (test 1.33 K/ L 1.48-4.50 qdec=6810) MONOCYTES - ABS (DIFF) (BEAKER) (test xpjn=8302) 0.76 K/ L 0.00-1.30 TOTAL COUNTED (BEAKER) (test qmnw=2837) 100 WBC MORPHOLOGY (BEAKER) (test uvtr=981) Normal GIANT PLATELETS (BEAKER) (test emcv=063) Present ANISOCYTOSIS (BEAKER) (test bevq=276) 1+ few HYPOCHROMIA (BEAKER) (test yqbi=161) 2+ moderate MICROCYTES (BEAKER) (test wgtv=039) 1+ few POLYCHROMATOPHILLIC RBCS(BEAKER) (test djkg=460) 1+ few STOMATOCYTES (BEAKER) (test xjkw=536) 1+ few BLOOD GAS, CORD [id number] 22:57:00 Test Item Value Reference Range Comments PH CORD VENOUS (BEAKER) (test hvkk=9530) 7.24 7.32-7.42 PCO2 CORD VENOUS (BEAKER) (test rxvk=5357) 47 mmHg 41-51 PO2 CORD VENOUS (BEAKER) (test prxs=2358) 21 mmHg 25-40 HCO3 CORD VENOUS (BEAKER) (test cprr=8499) 20 mmol/L 21-29 BASE EXCESS CORD VENOUS (BEAKER) (test -8.0 mmol/L -2.0-3.0 zthu=8739) PATIENT TEMPERATURE (BEAKER) (test xhea=7328) 37.0 C BLOOD GAS, CORD [id number] 22:57:00 Test Item Value Reference Range Comments PH CORD ARTERIAL (BEAKER) (test mrbu=1053) 7.13 7.15-7.38 PCO2 CORD ARTERIAL (BEAKER) (test exoc=3604) 54 mmHg 32-68 PO2 CORD ARTERIAL (BEAKER) (test nspv=9983) 14 mmHg 16-20 HCO3 CORD ARTERIAL (BEAKER) (test reqk=7385) 18 mmol/L 15-27 BASE EXCESS CORD ARTERIAL (BEAKER) (test -11.9 mmol/L -8.1-0.9 glav=3158) PATIENT TEMPERATURE (BEAKER) (test jdcs=5127) 37.0 C POCT-GLUCOSE [id number] 06:58:00 Test Item Value Reference Range Comments POC-GLUCOSE METER (BEAKER) 74 mg/dL 70-110 TESTED AT [address] (test kimn=9294) [facility] [address] POCT-GLUCOSE [id number] 02:57:00 Test Item Value Reference Range Comments POC-GLUCOSE METER (AKER) 75 mg/dL 70-110 TESTED AT [address] (test kzhe=7429) [facility] [address] CBC W/PLT COUNT & AUTO [id number] 23:03:00 Test Item Value Reference Range Comments WHITE BLOOD CELL COUNT (BEAKER) (test jnig=100) 9.3 K/ L 4.0-10.0 RED BLOOD CELL COUNT (BEAKER) (test pmdy=797) 3.59 M/ L 4.00-5.00 HEMOGLOBIN (BEAKER) (test fytp=651) 8.7 GM/DL 12.0-15.0 HEMATOCRIT (BEAKER) (test mwfc=508) 27.3 % 36.0-45.0 MEAN CORPUSCULAR VOLUME (BEAKER) (test koci=467) 76.0 fL 82.0-99.0 MEAN CORPUSCULAR HEMOGLOBIN (BEAKER) (test 24.2 pg 27.0-33.0 mtit=101) MEAN CORPUSCULAR HEMOGLOBIN CONC (BEAKER) (test 31.9 GM/DL 32.0-36.0 hdvn=970) RED CELL DISTRIBUTION WIDTH (BEAKER) (test 15.3 % 10.3-14.2 ygkt=541) PLATELET COUNT (BEAKER) (test rkda=316) 115 K/CU MM 150-430 MEAN PLATELET VOLUME (BEAKER) (test beuz=593) 9.6 fL 6.5-10.5 (MANUAL DIFFERENTIAL)2017-03-21 23:03:00 Test Item Value Reference Range Comments NEUTROPHILS - REL (DIFF) (BEAKER) (test eruf=9242) 82 % LYMPHOCYTES - REL (DIFF) (BEAKER) (test mbiw=1446) 17 % EOSINOPHILS - REL (DIFF) (BEAKER) (test hqcj=3404) 1 % NEUTROPHILS - ABS (DIFF) (BEAKER) (test sppy=8502) 7.63 K/ L 1.80-8.00 LYMPHOCYTES - ABS (DIFF) (BEAKER) (test dkgp=9726) 1.58 K/ L 1.48-4.50 EOSINOPHILS - ABS (DIFF) (BEAKER) (test jcis=5213) 0.09 K/ L 0.00-0.50 TOTAL COUNTED (BEAKER) (test feki=1040) 100 WBC MORPHOLOGY (BEAKER) (test ppkv=499) Normal PLT MORPHOLOGY (BEAKER) (test laal=120) Normal HYPOCHROMIA (BEAKER) (test oefk=322) 3+ many HEPATITIS B SURFACE [id number] 22:54:00 Test Item Value Reference Range Comments HEPATITIS B SURFACE ANTIGEN (2) (BEAKER) (test Nonreactive Nonreactive vbiw=7086) COMPREHENSIVE METABOLIC [id number] 22:39:00 Test Item Value Reference Range Comments TOTAL PROTEIN (BEAKER) 6.0 gm/dL 6.0-8.5 (test ghvw=384) ALBUMIN (BEAKER) (test 3.0 g/dL 3.5-5.0 qhrv=2214) ALKALINE PHOSPHATASE 206 U/L 30-115 (BEAKER) (test uzkp=928) BILIRUBIN TOTAL (BEAKER) 0.2 mg/dL 0.1-1.2 (test wfpx=400) SODIUM (BEAKER) (test 136 meq/L 135-148 ipri=188) POTASSIUM (BEAKER) (test 3.6 meq/L 3.6-5.5 efrj=845) CHLORIDE (BEAKER) (test 106 meq/L 98-106 ybip=470) CO2 (BEAKER) (test 18 meq/L 20-29 rdcx=251) BLOOD UREA NITROGEN 5 mg/dL 10-26 (BEAKER) (test dwug=778) CREATININE (BEAKER) (test 0.70 mg/dL 0.50-1.20 znvv=061) GLUCOSE RANDOM (BEAKER) 101 mg/dL 70-110 (test qfrm=779) CALCIUM (BEAKER) (test 8.9 mg/dL 8.5-10.5 gdtp=736) AST (SGOT) (BEAKER) (test 12 U/L 5-40 rpmv=269) ALT (SGPT) (BEAKER) (test 9 U/L 5-50 ndyh=503) EGFR (BEAKER) (test 103 mL/min/1.73 sq ESTIMATED GFR IS NOT jlhn=0617) m ACCURATE CREATININE CLEARANCE IN PREDICTING GLOMERULAR FILTRATION RATE. ESTIMATED GFR IS NOT APPLICABLE FOR DIALYSIS PATIENTS.
--- NOTE | 2018-01-20 13:12 | OP ---
Date of Procedure: 01/20/2018 Surgeon: Steven Bacon MD, Technical Operations Vice President: Nena Noel. Preoperative Diagnosis: Acute nonperforated appendicitis. Postoperative Diagnosis: Acute nonperforated appendicitis. Procedure Performed: Laparoscopic appendectomy. Anesthesia: General endotracheal plus local with 0.25% Marcaine with epinephrine. Estimated Blood Loss: Less than 5 cc. Specimen: Vermiform appendix. Findings: Acute nonperforated appendicitis. Complications: None. Disposition: Transferred to recovery room in good condition. Brief Operative Note: After informed consent was obtained, the patient was brought to the operating room, prepped and draped in the usual sterile fashion. After adequate anesthesia was achieved, infra umbilical area was anesthetized with 0.25% Marcaine and sharply incised. A 5-mm trocar was introduced into the abdomen without evidence of complication. Insufflation was obtained to 15 mmHg this time. There was no injury to vital structure upon entry into the abdomen. Additional trocar site was chos en in the suprapubic region. This was similarly anesthetized and sharply incised and a 5-mm trocar wa s introduced into the abdomen without evidence complication. The umbilical trocar was then up-sized to a 12 mm under direct visualization without evidence of complication. Additional trocar site was c hosen in the left lower quadrant. This was similarly anesthetized, sharply incised, and a 5-mm troca r was introduced into the abdomen without evidence of complication. The patient was them positioned in the appendix position, head down, right side up position. Ratcheted graspers were used to grasp t he cecum and elevated. The appendix was appreciated this time as consistent with acute nonperforated appendicitis. The [place] retractors were used to create a mesoappendiceal window without evidence of complication. The Endo MACI 35 blue load was fired across the base of the appendix with good appr oximation of tissues. There was no bleeding from staple line at the end of the procedure. The LigaS ure device was then used to take the mesoappendix down without evidence of complication. The appendi x was then placed in an EndoCatch bag. I removed the umbilical trocar. Re-insufflation was obtained at this time. The area was inspected. Proper hemostasis was achieved. There was no leakage from t he staple line. The appendix was sent off for pathologic examination at this time. The area was photocopier technician iously irrigated multiple times. The patient was then positioned in neutral position, copiously irri gated once again, and suctioned dry until completely dry. The area was inspected 1 last time. The s taple was found to be good and intact at the end of procedure. The umbilical trocar was then removed and the umbilical trocar site was closed using a Donte-Berenice suture passer with an 0 Vicryl in i nterrupted fashion with good approximation of tissues. The abdomen was then completely desufflated u nder direct visualization without evidence of complication and all trocars removed. All skin incisio ns were copiously irrigated and closed with a 4-0 Monocryl in a running fashion with Dermabond placed over top. The patient tolerated the procedure well without evidence of complication and transferred to PACU in good condition. All counts were correct at the end of the case. HEIKE/SANDIP Voice ID: [id number] Report ID: [id number]
--- NOTE | 2018-01-20 13:36 | HP ---
Date of Admission: 01/20/2018 Brief History Of Present Illness: The patient is a 27-year-old female, who presents with a history of abdominal pain beginning approximately 1:00 a.m. She stated it was in the infraumbilical position, got significantly worse, sharp, stabbing, and radiated to the right lower quadrant. She h as never had similar episodes before in the past. No new food exposures. No sick contacts. No rece nt travel. 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 The pain got progressively worse and as such, she developed nausea, vomiting, however, continued to have abnormal normal bowel function. She came to the emergency room with the above-stated complaints. She had beverley e chills as well. Past Medical History: Negative. Past Surgical History: [place] teeth only extraction. Allergies: NO KNOWN DRUG ALLERGIES. Medications: None. Social History: She denies smoking, alcohol, or recreational drug use. 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 She has a child, who is less than 1-year-old. Review of Systems: A 10-point review of systems other than HPI, denies. Physical Examination: General: At the time of my examination, she is awake, alert, oriented. Psychiatric: She is appropriate, conversive. HEENT: She is normocephalic. Sclerae anicteric. Mucous membranes moist. Oropharynx clear. Neck: Supple. No JVD. Chest: Normal to expansion and excursion. Cardiovascular: Regular rate and rhythm. Pulmonary: Clear to auscultation bilaterally. Abdomen: Soft with positive right lower quadrant tenderness to palpation. Positive focal peritoniti s at McBurney's point. Negative psoas sign. No rebound otherwise. Extremities: No clubbing, cyanosis, edema. Skin: Warm and dry. Laboratory Data: Reveals a white blood cell count of 16.2, hemoglobin 14.2, hematocrit of 41.9, and platelet count is 231, neutrophils are 80.8. Sodium 136, potassium 3.6, chloride 102, carbon dioxide 24, BUN 11, creatinine 0.9, glucose 109, calcium 9.8, total bilirubin 0.6, direct component 0.1, AST 9, ALT 14, alkaline phosphatase 98, and lipase of 83. UA showed 3+ ketones, 20-50 bacteria. Urine test was negative. She had a CT scan of the abdomen and pelvis, which officially read as a cute appendicitis, specifically states that acute appendicitis with fluid-filled distended appendix m easuring 13 mm, significant periappendiceal inflammation/infiltration. Several appendicoliths are pr esent. Wall thickening with areas of decreased enhancement suggesting necrosis. No significant asael cent extraluminal air. No abscess. Additional nonemergent findings are described, which include min imal dependent bibasilar atelectasis and some bladder wall thickening and retroflexed uterus. Assessment And Plan: This is a 27-year-old female, who presents with signs and symptoms consistent w ith acute appendicitis. 1.IV fluid hydration. 2.Antibiotic coverage. 3.I have explained risks, benefits, and alternatives of laparoscopic, possible open appendectomy inc luding, but not limited to bleeding, infection, damage to surrounding tissue, need for further operat ing procedures. She agrees to proceed as indicated. HEIKE/SANDIP Voice ID: [id number]
== END 2018-01-20 15:36 | disposition home or self-care (01) ==
LOC: ER 05:06 → ERHOLD 07:27 → UNDOADMIN 07:27 → OR 07:27 → 2ND 12:15 → OR 15:36
PROVIDERS: ATTEND Surgery
PROC: 0DTJ4ZZ Resection of Appendix, Percutaneous Endoscopic Approach (ICD-10-PCS; principal; 2018-01-20 09:00)
DX: K35.89 Other acute appendicitis (principal)
CPT/HCPCS: 36415; 74177; 76830; 80048; 80076; 81003; 81015; 81025; 83690; 85025; 87086; 87088; 88304; 96361; 96365; 96375; 99285; J2250; J2405; J2543; J2550; J2710; J3010; J7030; Q9967